=== PATIENT | female | born 1995 | race Caucasian/White ===

== ENCOUNTER 2022-07-21 09:50 | Outpatient (CLI) | payer OTHER | END 2022-07-21 14:09 | disposition home or self-care (01) | LOC: OBS/DEL 09:50 | PROVIDERS: ATTEND Obstetrics & Gynecology | DX: O99.891 Other specified diseases and conditions complicating pregnancy (principal); N89.8 Other specified noninflammatory disorders of vagina; Z3A.30 30 weeks gestation of pregnancy ==

== ENCOUNTER 2022-07-23 08:06 | Outpatient (CLI) | payer OTHER ==
[2022-07-23] MEDS ORDERED: PRENATAL TABLE1 EAC1 PO (14:04)
[2022-07-23] MEDS ORDERED: IRON 100 PLUS1 EACH PO (14:08)
== END 2022-07-23 09:18 | disposition home or self-care (01) ==
LOC: NST 08:06
PROVIDERS: ATTEND Obstetrics & Gynecology
DX: Z34.83 Encounter for supervision of other normal pregnancy, third trimester (principal)

== ENCOUNTER 2022-07-23 12:08 | Inpatient (IN) | payer OTHER ==
[~2022-07-23] VITALS: Ht 157.5 cm; Wt 59.0 kg
[2022-07-23] MEDS ORDERED: PRENATAL TABLE1 EAC1 PO (14:04)
[2022-07-23] MEDS ORDERED: IRON 100 PLUS1 EACH PO (14:08)
== END 2022-07-24 10:08 | disposition home or self-care (01) | DRG 833 ==
LOC: LDR 12:08
PROVIDERS: ADMIT Obstetrics & Gynecology Gynecology; ATTEND Obstetrics & Gynecology Gynecology
PROC: 4A1HXCZ Monitoring of Products of Conception, Cardiac Rate, External Approach (ICD-10-PCS; principal; 2022-07-23)
DX: O60.03 Preterm labor without delivery, third trimester (principal); Z3A.30 30 weeks gestation of pregnancy; Z20.822 Contact with and (suspected) exposure to COVID-19

== ENCOUNTER 2022-08-26 09:04 | Outpatient (CLI) | payer OTHER ==
[~2022-08-26 09:04] MED LIST: IRON 100 PLUS1 EACH PO; PRENATAL TABLE1 EAC1 PO
== END 2022-08-26 09:51 | disposition home or self-care (01) ==
LOC: NST 09:04
PROVIDERS: ATTEND Obstetrics & Gynecology Maternal & Fetal Medicine
DX: Z34.83 Encounter for supervision of other normal pregnancy, third trimester (principal)

== ENCOUNTER 2022-09-03 08:44 | Outpatient (CLI) | payer OTHER | END 2022-09-03 09:30 | disposition home or self-care (01) | LOC: NST 08:44 | PROVIDERS: ATTEND Obstetrics & Gynecology Maternal & Fetal Medicine | DX: Z34.83 Encounter for supervision of other normal pregnancy, third trimester (principal) ==

== ENCOUNTER 2022-09-10 11:21 | Outpatient (CLI) | payer OTHER | END 2022-09-10 12:32 | disposition home or self-care (01) | LOC: NST 11:21 | PROVIDERS: ATTEND Obstetrics & Gynecology | DX: Z34.83 Encounter for supervision of other normal pregnancy, third trimester (principal) ==

== ENCOUNTER 2022-09-10 12:14 | Inpatient (IN) | payer OTHER ==
[~2022-09-10] VITALS: Ht 157.5 cm; Wt 2.3 kg
[2022-09-15] MEDS ORDERED: NIFEDIPINE ER30 M1 (13:06)
== END 2022-09-17 11:33 | disposition home or self-care (01) | DRG 788 ==
LOC: OB/GYN 09-15 06:42 → O/R 09-15 06:42 → OB/GYN 09-15 12:14
PROVIDERS: ADMIT Obstetrics & Gynecology; ATTEND Obstetrics & Gynecology
PROC: 4A1HXCZ Monitoring of Products of Conception, Cardiac Rate, External Approach (ICD-10-PCS; 2022-09-15)
PROC: 10D00Z1 Extraction of Products of Conception, Low, Open Approach (ICD-10-PCS; principal; 2022-09-15 18:30)
DX: O36.5930 Maternal care for other known or suspected poor fetal growth, third trimester, not applicable or unspecified (principal); O32.1XX0 Maternal care for breech presentation, not applicable or unspecified; Z3A.38 38 weeks gestation of pregnancy; Z37.0 Single live birth; Z20.822 Contact with and (suspected) exposure to COVID-19

== ENCOUNTER 2022-09-13 07:51 | Outpatient (CLI) | payer OTHER | END 2022-09-13 08:50 | disposition home or self-care (01) | LOC: NST 07:51 | PROVIDERS: ATTEND Obstetrics & Gynecology | DX: Z34.83 Encounter for supervision of other normal pregnancy, third trimester (principal) ==

== ENCOUNTER 2023-07-13 07:00 | Day surgery (SDC) | payer OTHER ==
[2023-07-12 11:14] LABS: HEMOGLOBIN 12.3 g/dL (12.0-15.00); MEAN CORPUSCULAR HEMOGLOBIN 31.1 pg (27.00-32.0); MEAN CORPUSCULAR HGB CONC 34.2 g/dl (32.0-36.0); PLATELET COUNT 338 K/uL (150-450); RED BLOOD COUNT 3.96 M/uL (4.00-6.00); RED CELL DISTRIBUTION WIDTH 12.4 % (11.5-14.5)
[2023-07-12 11:45] LABS: INR 1.03; PROTHROMBIN TIME 10.8 SECONDS (9.0-11.5)
[2023-07-12 11:46] LABS: PARTIAL THROMBOPLASTIN TIME 28.3 SECONDS (22.0-34.0)
[2023-07-12 11:52] LABS: ALBUMIN 5.2 gm/dL (3.4-5.0); BILIRUBIN TOTAL 0.49 mg/dL (0.3-1.2); CALCIUM 10.1 mg/dL (8.5-10.1); CREATININE SERUM 0.5 mg/dL (0.55-1.02); GFR 144.87; GLOBULINA 3.7 G/DL (2.4-3.5); POTASSIUM 4.15 mEq/L (3.5-5.1); TOTAL PROTEIN 8.9 gm/dL (6.4-8.2)
[~2023-07-13 07:00] MED LIST changes: +NIFEDIPINE ER30 M1
[2023-07-13] MEDS ORDERED: DOXYCYCLINE HYCLATE 100 MG TABLET PO ONE (14:15)
[2023-07-13] MEDS ORDERED: PROMETHAZINE HCL 50 MG/ML AMPUL IM ONE (17:30)
[2023-07-13] MEDS ORDERED: MORPHINE SULFATE 4 MG/ML VIAL IV PRN (17:30)
[2023-07-13] MEDS ORDERED: POVIDONE-IODINE 118 ML BOTT TOP ONE (17:53)
== END 2023-07-14 01:20 | disposition home or self-care (01) ==
LOC: CIR.AMB 07:00
PROVIDERS: ATTEND Obstetrics & Gynecology
DX: O02.1 Missed abortion (principal); Z20.822 Contact with and (suspected) exposure to COVID-19

== ENCOUNTER 2025-01-01 14:17 | Inpatient (IN) | payer OTHER ==
[~2025-01-01] VITALS: Ht 154.9 cm; Wt 2.3 kg
[2025-01-01] MEDS ORDERED: LEVOTHYROXINE25 MCG PO (14:22)
[2025-01-01 14:58] LABS: BASO % 0.3 % (0.1-1.2); EOS # 0.08 (0.04-0.54); EOS % 1.1 % (0.7-7.0); LYMPH # 1.45 (1.18-3.74); LYMPH % 20.8 % (19.3-53.1); MEAN PLATELET VOLUME 10.20 fl (9.4-12.4); MONO # 0.50 (0.24-0.82); MONO % 7.2 % (4.7-12.5); NEUT # 4.80 (1.56-6.13); NEUT % 68.7 % (34.0-71.1); RED CELL DISTRIBUTION WIDTH 12.8 % (11.6-14.4)
[2025-01-01 15:04] LABS: URINE APPEARANCE Clear; URINE BILIRRUBIN Negative (NEGATIVE); URINE BLOOD Negative; URINE COLOR Yellow; URINE GLUCOSE Negative (NEGATIVE); URINE KETONE Negative (NEGATIVE); URINE LEUKOCYTE Negative; URINE NITRATE Negative; URINE PROTEIN Negative (NEGATIVE); URINE UROBILINOGEN 0.2 E.U./dl
[2025-01-01 15:08] LABS: URINE BACTERIA 55.1 uL (0.0-1933); URINE EPITHELIAL CELLS 3.5 uL (0.0-38.8); URINE WBC 2.0 uL (0.0-23.2)
[2025-01-01 15:14] LABS: INR < 0.93
[2025-01-01 15:17] LABS: URINE CAST 0.00 uL (0.0-1.40); URINE RBC 0.4 uL (0.0-20.8)
[2025-01-01 15:47] LABS: ALT/SGPT 21.0 U/L (12-78); AST/SGOT 16.0 U/L (15-37); BILIRUBIN TOTAL 0.42 mg/dL (0.3-1.2); BUN CREA RATIO 17.0 (7.0-25.0); CREATININE SERUM 0.41 mg/dL (0.55-1.02); GFR 180.94; GLOBULINA 3.9 G/DL (2.4-3.5); GLUCOSE FASTING 71.0 mg/dL (65-100); OSMOLALITY SERUM 272.0 MOSM/KG (275-295)
[2025-01-07 09:02] VITALS: BP 102/69
[2025-01-07] MEDS ORDERED: RINGERS SOLUTION,LACTATED 1,000 ML IV SCH (10:45)
[2025-01-07] MEDS ORDERED: CEFAZOLIN SODIUM 1,000 MG VIAL IV SCH (10:45)
[2025-01-07] MEDS ORDERED: CITRIC ACID/SODIUM CITRATE 30 ML BLIST.PACK PO SCH (10:45)
[2025-01-07] MEDS ORDERED: INTEGRA F CAPS1 EACH PO (11:01)
[2025-01-07] MEDS ORDERED: TRIAMCINOLONE ACETONIDE 40 MG/ML VIAL IJ ONE (14:45)
[2025-01-07] MEDS ORDERED: MORPHINE SULFATE 4 MG/ML VIAL IV ONE ×2 (15:30→16:35)
[2025-01-07] MEDS ORDERED: ERYTHROMYCIN BASE OPHT 1GM EACH TUBE OP ONE (15:30)
[2025-01-07] MEDS ORDERED: OXYTOCIN 10 UNITS/ML VIAL IV ONE (15:30)
[2025-01-07] MEDS ORDERED: KETOROLAC TROMETHAMINE 30 MG VIAL IV SCH (15:50)
[2025-01-07] MEDS ORDERED: OXYTOCIN 1,000 ML IV ONE (16:00)
[2025-01-07] MEDS ORDERED: MORPHINE SULFATE 4 MG/ML CARTRIDGE IV SCH (17:00)
[2025-01-07 18:06] VITALS: BP 118/75
[2025-01-08 00:09] VITALS: BP 97/60
[2025-01-08] MEDS ORDERED: ACETAMINOPHEN 500 MG GEL..CAP PO SCH (06:00)
[2025-01-08 06:32] LABS: BASO % 0.2 % (0.1-1.2); EOS # 0.02 (0.04-0.54); EOS % 0.2 % (0.7-7.0); LYMPH # 1.35 (1.18-3.74); LYMPH % 10.2 % (19.3-53.1); MEAN PLATELET VOLUME 10.60 fl (9.4-12.4); MONO # 0.94 (0.24-0.82); MONO % 7.1 % (4.7-12.5); NEUT # 10.89 (1.56-6.13); NEUT % 81.7 % (34.0-71.1); RED CELL DISTRIBUTION WIDTH 12.8 % (11.6-14.4)
[2025-01-08 08:36] VITALS: BP 100/59
[2025-01-08] MEDS ORDERED: GABAPENTIN 300 MG CAPSULE PO SCH (09:00)
[2025-01-08] MEDS ORDERED: SIMETHICONE 125 MG CAPSULE PO SCH (09:00)
[2025-01-08] MEDS ORDERED: PNV,CALCIUM 72/IRON/FOLIC ACID 1 TAB TABLET PO SCH (09:00)
[2025-01-08] MEDS ORDERED: DOCUSATE SODIUM 100MG CAP PO SCH (09:00)
[2025-01-08 13:27] VITALS: BP 105/61
[2025-01-08 17:12] VITALS: BP 110/68; O2SAT 97
[2025-01-08 20:33] VITALS: BP 100/62
[2025-01-09 00:17] VITALS: BP 101/68
[2025-01-09 08:00] VITALS: BP 98/62
[2025-01-09] MEDS ORDERED: IRON FUM,PS/FOLIC ACID/VITC/B3 1 CAP CAPSULE PO SCH (09:00)
== END 2025-01-09 10:28 | disposition home or self-care (01) | DRG 785 ==
LOC: LDR 01-07 10:33 → OB/GYN 01-07 14:36 → LDR 01-09 12:46
PROVIDERS: ADMIT Obstetrics & Gynecology Gynecology; ATTEND Obstetrics & Gynecology Gynecology
PROC: 0UB70ZZ Excision of Bilateral Fallopian Tubes, Open Approach (ICD-10-PCS; 2025-01-07)
PROC: 4A1HXCZ Monitoring of Products of Conception, Cardiac Rate, External Approach (ICD-10-PCS; 2025-01-07)
PROC: 10D00Z1 Extraction of Products of Conception, Low, Open Approach (ICD-10-PCS; principal; 2025-01-07 13:00)
DX: O34.211 Maternal care for low transverse scar from previous cesarean delivery (principal); O36.5930 Maternal care for other known or suspected poor fetal growth, third trimester, not applicable or unspecified; Z3A.38 38 weeks gestation of pregnancy; Z37.0 Single live birth; Z30.2 Encounter for sterilization

== ENCOUNTER 2025-01-04 07:50 | Outpatient (CLI) | payer OTHER ==
[~2025-01-04 07:50] MED LIST changes: +LEVOTHYROXINE25 MCG PO
== END 2025-01-04 08:38 | disposition home or self-care (01) ==
LOC: NST 07:50
PROVIDERS: ATTEND Obstetrics & Gynecology Gynecology
DX: Z34.83 Encounter for supervision of other normal pregnancy, third trimester (principal)

== ENCOUNTER 2025-01-07 07:58 | Outpatient (CLI) | payer OTHER ==
[2025-01-07] MEDS ORDERED: INTEGRA F CAPS1 EACH PO (11:01)
== END 2025-01-07 10:33 | disposition still patient (30) ==
LOC: NST 07:58
PROVIDERS: ATTEND Obstetrics & Gynecology Gynecology
DX: Z34.83 Encounter for supervision of other normal pregnancy, third trimester (principal)